=== PATIENT | male | born 1980 | race Caucasian/White ===

== ENCOUNTER 2019-08-25 09:58 | Emergency (ER) | payer OTHER ==
[~2019-08-25] VITALS: Ht 182.9 cm; Wt 104.3 kg
== END 2019-08-25 12:33 | disposition home or self-care (01) ==
LOC: ED 09:58
DX: S39.012A Strain of muscle, fascia and tendon of lower back, initial encounter (principal); R55 Syncope and collapse; Z88.8 Allergy status to other drugs, medicaments and biological substances; X58.XXXA Exposure to other specified factors, initial encounter
CPT/HCPCS: 72100; 80053; 81001; 85025; 99284-25

== ENCOUNTER 2021-02-20 23:32 | Emergency (ER) | payer OTHER ==
[~2021-02-20] VITALS: Ht 180.3 cm; Wt 107.0 kg
--- OUTSIDE RECORDS SUMMARY | 2021-02-20 23:38 | XMS ---
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 EGonzalez VISIT COUNT (12 MO.) [address] Dashawn Montejo TOTAL 3 NOTE: Visits indicate total known visits. ED/UCC VISIT TRACKING (12 MO.) 02/20/2021 23:32 [facility] TYPE: Emergency COMPLAINT: - ABDOMINAL PAIN 01/06/2021 09:29 [facility] TYPE: Emergency DIAGNOSES: - Sepsis, unspecified organism - Cellulitis of left upper limb - LEFT SHOULDER PAIN 08/01/2020 19:38 [facility] TYPE: Emergency DIAGNOSES: - Contact with and (suspected) exposure to other viral communicable diseases - BHARGAV SWANSON INPATIENT VISIT TRACKING (12 MO.) 01/13/2021 08:20 [facility] TYPE: General Medicine DIAGNOSES: - Other specified soft tissue disorders - Methicillin resistant Staphylococcus aureus infection as the cause of diseases classified elsewhere - Acute gastrojejunal ulcer with hemorrhage - Acute posthemorrhagic anemia - GI Bleed - Epigastric pain - Gastric ulcer, unspecified as acute or chronic, without hemorrhage or perforation - Cellulitis, unspecified - Adverse effect of other nonsteroidal anti-inflammatory drugs [NSAID], initial encounter - Essential (primary) hypertension - Cellulitis of left upper limb 01/06/2021 09:29 [facility] TYPE: Medical Surgical DIAGNOSES: - Cellulitis of left upper limb - Sepsis, unspecified organism [email or web address]
[2021-02-20] MEDS ORDERED: MUPIROCIN22 GM TOP (23:57)
[2021-02-20] MEDS ORDERED: LOSARTAN POTAS100 MG PO (23:57)
[2021-02-20] MEDS ORDERED: CARVEDILOL12.5 MG PO (23:57)
[2021-02-20] MEDS ORDERED: PANTOPRAZOLE SO40 MG PO (23:57)
[2021-02-21] MEDS ORDERED: DOXYCYCLINE HY100 MG PO (00:52)
[2021-02-21] MEDS ORDERED: POTASSIUM CHLO20 ME1 PO (00:52)
== END 2021-02-21 01:22 | disposition home or self-care (01) ==
LOC: ED 23:32
DX: R10.12 Left upper quadrant pain (principal); I10 Essential (primary) hypertension; Z88.8 Allergy status to other drugs, medicaments and biological substances; Z79.899 Other long term (current) drug therapy; L03.114 Cellulitis of left upper limb
CPT/HCPCS: 80053; 81001; 83690; 85025; 96374; 96375; 99284-25; C9113; J2405